=== PATIENT | male | born 1985 | race Caucasian/White ===

== ENCOUNTER 2023-09-29 12:53 | Day surgery (SDC) | payer OTHER ==
[~2023-09-29] VITALS: Ht 182.9 cm; Wt 102.0 kg
[2023-09-29] MEDS ORDERED: ZYRTEC 10MG10 MG PO (14:02)
[2023-09-29] MEDS ORDERED: CHOLECALCIFEROL PO (14:04)
[2023-09-29] MEDS ORDERED: LIDO35.4 TP (14:05)
[2023-09-29] MEDS ORDERED: COZAAR 25MG25 MG/TAB PO (14:05)
[2023-09-29] MEDS ORDERED: MAG-OX 400400 MG/TAB PO (14:06)
[2023-09-29] MEDS ORDERED: MOBIC15 MG PO (14:06)
[2023-09-29] MEDS ORDERED: VITAMIN B1 50 MG PO (14:07)
[2023-09-29 14:14] VITALS: BP 139/100; PULSE 75; TEMP 97
[2023-09-29 14:30] VITALS: BP 121/84; PULSE 73; TEMP 97.6
[2023-09-29 14:45] VITALS: BP 127/95; PULSE 75
[2023-09-29 15:00] VITALS: BP 140/90; PULSE 69
--- NOTE | 2023-09-29 15:08 | NUR ---
1430- PATIENT RETURNS TO [facility] [place] VIA CART. PT AWAKE AND ALERT. RESPIRATIONS UNLABORED. AMBULATED TO RECLINER CHAIR WITH 2:1 SBA. PT DENIES NAUSEA OR ABDOMINAL PAIN. HOOKED UP TO MONITOR AND VS OBTAINED. CALL LIGHT AT SIDE AND FAMILY PRESENT. 1438- PATIENT TOLERATING CRANBERRY JUICE AND MUFFIN WITHOUT NAUSEA OR DIFFICULTY SWALLOWING. 1451- D/C INSTRUCTIONS REVIEWED WITH PATIENT. PT VERBALIZED UNDERSTANDING AND A COPY OF INSTRUCTIONS PROVIDED IN D/C FOLDER. 1456- PATIENT DRESSES SELF. 1500- DR. DAVILA IN ROOM SPEAKING WITH PATIENT. 1508- PATIENT DISCHARGED FROM UNIT VIA W/C TO A PERSONAL VEHICLE. PT LEFT HOSPITAL IN STABLE CONDITION.
== END 2023-09-29 15:08 | disposition home or self-care (01) ==
LOC: SDCO 12:53 → EDSEX 15:45 → SDCO 15:45
DX: K22.2 Esophageal obstruction (principal); K21.00 Gastro-esophageal reflux disease with esophagitis, without bleeding; Z87.891 Personal history of nicotine dependence
CPT/HCPCS: C1726; J2704; J7120